=== PATIENT | male | born 1940 | race African-American/Black ===

== ENCOUNTER 2017-11-15 23:09 | Observation (INO) ==
[2017-11-16 00:15] LABS: Basophils % 0.2 % (0.0-0.8); Hematocrit 37.7 VOL% (42.0-52.0); Hemoglobin 12.3 GM/DL (14.0-18.0); Immature Granulocytes % 0.2 %; Immature Granulocytes Absolute 0.01 #; Lymphocytes # 0.4 10*3/uL (1.4-4.0); Lymphocytes % 7.5 % (21.2-54.2); Mean Corpuscular HGB Conc 32.6 GM/DL (32-36); Mean Corpuscular Hemoglobin 31 PG (27-34); Mean Corpuscular Volume 93.5 FL (87-102); Monocytes # 0.3 10*3/uL (0.11-0.8); Monocytes % 5.4 % (1.7-12.7); Neutrophils % 86.7 % (38.7-73.9); Platelet Count 176 T/CUMM (130-400); Red Blood Count 4.03 MC/CUMM (3.8-5.5); Red Cell Distribution Width 13.1 % (9.3-17.3); White Blood Count 4.7 T/CUMM (4-12)
[2017-11-16 00:32] LABS: Alanine Aminotransferase 23 U/L (16-61); Albumin 3.4 G/DL (3.4-5.0); Alkaline Phosphatase 70 U/L (45-117); Aspartate Amino Transferase 25 U/L (0-37); Blood Urea Nitrogen 15 MG/DL (7-18); Calcium 9.4 MG/DL (8.5-10.1); Glucose 142 MG/DL (74-106); Osmolality,Calculated 279.5 MOS/KG (273-304); Potassium 4.2 MMOL/L (3.5-5.1); Sodium 139 MMOL/L (136-145); Total Protein 8.2 G/DL (6.4-8.3); Troponin I Only < 0.015 NG/ML (0.00-0.045)
[2017-11-16 01:34] LABS: Apearance,Urine CLEAR (Clear); Bilirubin,Urine Negative (Negative); Blood, Urine Negative (Negative); Glucose,Urine (UA) Negative (Negative); Ketones,Urine Negative (Negative); Nitrite,Urine Negative (Negative); Protein,Urine Negative; RBC,Urine 2 /HPF (0-4); Squamous Epithelial Cell,Urine Occasional /HPF (0-10); Urine Color Yellow (Yellow); Urine Urobilinogen < 2.0 EU/DL (0.2-1.0); WBC,Urine 1 /HPF (0-6)
[2017-11-16 03:39] LABS: Thyroid Stimulating Hormone 1.51 uIU/ml (0.358-3.74)
[2017-11-16 06:13] LABS: Hematocrit 37.9 VOL% (42.0-52.0); Hemoglobin 12.7 GM/DL (14.0-18.0); Immature Granulocytes % 0.3 %; Immature Granulocytes Absolute 0.01 #; Lymphocytes # 0.2 10*3/uL (1.4-4.0); Lymphocytes % 5.3 % (21.2-54.2); Mean Corpuscular HGB Conc 33.5 GM/DL (32-36); Mean Corpuscular Hemoglobin 31 PG (27-34); Mean Corpuscular Volume 91.1 FL (87-102); Mean Platelet Volume 9.5 FL (9.6-12.0); Monocytes # 0.2 10*3/uL (0.11-0.8); Monocytes % 4.5 % (1.7-12.7); Neutrophils # 3.6 10*3/uL (1.4-7.4); Neutrophils % 89.9 % (38.7-73.9); Platelet Count 188 T/CUMM (130-400); Red Blood Count 4.16 MC/CUMM (3.8-5.5); Red Cell Distribution Width 13.2 % (9.3-17.3)
[2017-11-16 06:24] LABS: Calcium 9.2 MG/DL (8.5-10.1); Osmolality,Calculated 283.3 MOS/KG (273-304); Potassium 4.1 MMOL/L (3.5-5.1)
[2017-11-17 04:31] LABS: Basophils % 0.1 % (0.0-0.8); Hematocrit 39.8 VOL% (42.0-52.0); Hemoglobin 13.4 GM/DL (14.0-18.0); Immature Granulocytes % 0.3 %; Immature Granulocytes Absolute 0.02 #; Lymphocytes # 0.3 10*3/uL (1.4-4.0); Lymphocytes % 4.2 % (21.2-54.2); Mean Corpuscular HGB Conc 33.7 GM/DL (32-36); Mean Corpuscular Hemoglobin 31 PG (27-34); Mean Corpuscular Volume 91.5 FL (87-102); Mean Platelet Volume 10.1 FL (9.6-12.0); Monocytes # 0.5 10*3/uL (0.11-0.8); Monocytes % 6.5 % (1.7-12.7); Neutrophils # 6.6 10*3/uL (1.4-7.4); Neutrophils % 88.9 % (38.7-73.9); Platelet Count 192 T/CUMM (130-400); Red Blood Count 4.35 MC/CUMM (3.8-5.5); Red Cell Distribution Width 13.2 % (9.3-17.3); White Blood Count 7.4 T/CUMM (4-12)
[2017-11-17 04:51] LABS: Calcium 9.5 MG/DL (8.5-10.1); Osmolality,Calculated 276.7 MOS/KG (273-304); Potassium 3.8 MMOL/L (3.5-5.1)
[2017-11-17 05:53] LABS: Band Neutrophils 6 % (0-10); Lymphocytes 5 % (20-55); Segmented Neutrophils 86 % (50-85); Total Cells Counted 100
[2017-11-17 16:06] VITALS: BP 155/109
== END 2017-11-17 17:55 | disposition home or self-care (01) ==
LOC: EDUNIT# → EDBD → N.EDINP 23:09 → N.ED 23:09 → N.3E 11-16 03:17
PROVIDERS: ADMIT Internal Medicine; ATTEND Internal Medicine

== ENCOUNTER 2019-03-06 16:57 | Inpatient (IN) ==
[2019-03-06] MEDS ORDERED: diphenhydrAMINE CAP 25 MG CAPSULE PO PRN (20:29)
[2019-03-06] MEDS ORDERED: traZODone 50 MG TABLET PO PRN (20:29)
[2019-03-06] MEDS ORDERED: BISACODYL 5 MG TABLET PO PRN (20:29)
[2019-03-06] MEDS ORDERED: NICOTINE 21 MG/24 HR PATCH TRANSDERM PRN (20:29)
[2019-03-06] MEDS ORDERED: guaiFENesin/DM ER 600-30 MG TABLET PO PRN (20:29)
[2019-03-06] MEDS ORDERED: ALBUTEROL 2.5 MG/3 ML NEB RESP TX PRN (20:29)
[2019-03-06] MEDS ORDERED: VANCOMYCIN INJ 1,000 MG in SODIUM CHLORIDE 0.9% 250 ML IV PRN (20:30)
[2019-03-06 20:51] LABS: ABG Base Excess -3.7 MMOL/L (-2.5-2.5); ABG HCO3 21.4 MMOL/L (20-26); ABG Oxygen Saturation 98.3 % (95-100); ABG PCO2 31.8 MM HG (35-48); ABG PH 7.408 (7.35-7.45); ABG TCO2 17.6 MMOL/L (23-27); Allen Test Positive
[2019-03-06] MEDS ORDERED: VANCOMYCIN INJ 1,000 MG in SODIUM CHLORIDE 0.9% 250 ML IV ONE (22:00)
[2019-03-06] MEDS: MEROPENEM 500 MG in SODIUM CHLORIDE 0.9% 100 ML IV SCH (22:07)
[2019-03-06] MEDS: ENOXAPARIN 60 MG/0.6 ML SYRINGE SUBCUT SCH (22:07)
[2019-03-06 22:50] LABS: Apearance,Urine Slightly Hazy (Clear); Bilirubin,Urine Negative (Negative); Blood, Urine Large mg/dL (Negative); Glucose,Urine (UA) Negative (Negative); Granular Casts,Urine 1 /LPF (0-1); Hyaline Casts,Urine 17 /LPF (0-3); Ketones,Urine Negative (Negative); Mucus,Urine Occasional /LPF (Occasional); Nitrite,Urine Negative (Negative); Protein,Urine 30 MG/DL; RBC,Urine 1 /HPF (0-4); Urine Color Amber (Yellow); Urine Specific Gravity 1.014 (1.001-1.035); WBC,Urine 8 /HPF (0-6)
[2019-03-07 00:19] LABS: Albumin 2.5 G/DL (3.4-5.0); Bilirubin,Total 1.8 MG/DL (0.2-1.0); Calcium 8.8 MG/DL (8.5-10.1); Risk Ratio 6.62; Thyroid Stimulating Hormone 1.65 uIU/ml (0.358-3.74); Total Protein 7.9 G/DL (6.4-8.3); VLDL CHOLESTEROL 34.2 MG/DL
[2019-03-07] MEDS: ALBUTEROL/IPRATROPIUM 3 ML NEB RESP TX SCH ×5 (01:12→23:55)
[2019-03-07 05:42] LABS: Basophils % 0.2 % (0.0-0.8); Eosinophils % 0.2 % (0.00-10.9); Hematocrit 32.8 VOL% (42.0-52.0); Hemoglobin 10.1 GM/DL (14.0-18.0); Immature Granulocytes % 1.5 %; Immature Granulocytes Absolute 0.27 #; Lymphocytes # 0.3 10*3/uL (1.4-4.0); Lymphocytes % 1.9 % (21.2-54.2); Mean Corpuscular HGB Conc 30.8 GM/DL (32-36); Mean Corpuscular Volume 97.9 FL (87-102); Mean Platelet Volume 10.9 FL (9.6-12.0); Monocytes % 2.9 % (1.7-12.7); Neutrophils % 93.3 % (38.7-73.9); Platelet Count 170 T/CUMM (130-400); Red Blood Count 3.35 MC/CUMM (3.8-5.5); Red Cell Distribution Width 14.3 % (9.3-17.3); White Blood Count 18.2 T/CUMM (4-12)
[2019-03-07 06:14] LABS: Band Neutrophils 3 % (0-10); Lymphocytes 2 % (20-55); Segmented Neutrophils 93 % (50-85); Total Cells Counted 100
[2019-03-07] MEDS: MORPHINE 4 MG/1 ML VIAL IV PRN ×2 (06:15→22:22)
[2019-03-07 06:16] LABS: Platelet Estimate Normal; Tear Drop Cells Few
[2019-03-07 06:17] LABS: Ovalocytes 1+
[2019-03-07] MEDS: MEROPENEM 500 MG in SODIUM CHLORIDE 0.9% 100 ML IV SCH ×2 (08:59→22:24)
[2019-03-07] MEDS ORDERED: DEXTROSE 5% NACL 0.9% 1,000 ML IV SCH (10:30)
[2019-03-07] MEDS ORDERED: DEXTROSE 5% NACL 0.22% 1,000 ML IV SCH (18:30)
[2019-03-07] MEDS: ENOXAPARIN 60 MG/0.6 ML SYRINGE SUBCUT SCH (22:29)
[2019-03-08] MEDS: DEXTROSE 5% 1,000 ML IV SCH ×4 (02:08→21:33)
[2019-03-08 04:59] LABS: Basophils % 0.2 % (0.0-0.8); Eosinophils % 0.2 % (0.00-10.9); Hematocrit 28.6 VOL% (42.0-52.0); Hemoglobin 8.9 GM/DL (14.0-18.0); Immature Granulocytes % 0.6 %; Immature Granulocytes Absolute 0.11 #; Lymphocytes # 0.4 10*3/uL (1.4-4.0); Lymphocytes % 2.1 % (21.2-54.2); Mean Corpuscular HGB Conc 31.1 GM/DL (32-36); Mean Corpuscular Volume 96.6 FL (87-102); Mean Platelet Volume 11.2 FL (9.6-12.0); Monocytes % 3.1 % (1.7-12.7); Neutrophils % 93.8 % (38.7-73.9); Platelet Count 183 T/CUMM (130-400); Red Blood Count 2.96 MC/CUMM (3.8-5.5); Red Cell Distribution Width 14.6 % (9.3-17.3); White Blood Count 17.4 T/CUMM (4-12)
[2019-03-08 05:25] LABS: Calcium 8.5 MG/DL (8.5-10.1); Osmolality,Calculated 338.7 MOS/KG (273-304)
[2019-03-08 06:04] LABS: Band Neutrophils 1 % (0-10); Lymphocytes 2 % (20-55); Segmented Neutrophils 95 % (50-85); Total Cells Counted 100
[2019-03-08 06:05] LABS: Platelet Estimate Adequate; Polychromasia Few
[2019-03-08] MEDS: ALBUTEROL/IPRATROPIUM 3 ML NEB RESP TX SCH ×3 (07:05→19:35)
[2019-03-08] MEDS: MEROPENEM 500 MG in SODIUM CHLORIDE 0.9% 100 ML IV SCH ×2 (10:12→21:32)
[2019-03-08] MEDS: MORPHINE 4 MG/1 ML VIAL IV PRN (13:09)
[2019-03-08] MEDS: ACETAMINOPHEN 325 MG SUPP RECTAL PRN (18:23)
[2019-03-08] MEDS: HEPARIN 5,000 UNIT/1 ML VIAL SUBCUT SCH (21:35)
[2019-03-09] MEDS: ALBUTEROL/IPRATROPIUM 3 ML NEB RESP TX SCH ×4 (01:44→20:26)
[2019-03-09] MEDS: HEPARIN 5,000 UNIT/1 ML VIAL SUBCUT SCH (06:19)
[2019-03-09 06:26] LABS: Calcium 8.7 MG/DL (8.5-10.1); Osmolality,Calculated 333.7 MOS/KG (273-304)
[2019-03-09] MEDS: DEXTROSE 5% 1,000 ML IV SCH ×3 (11:21→18:46)
[2019-03-09] MEDS ORDERED: ACETAMINOPHEN 325 MG SUPP RECTAL ONE (11:58)
[2019-03-09] MEDS: ACETAMINOPHEN 325 MG SUPP RECTAL PRN (12:10)
[2019-03-09] MEDS ORDERED: DEXTROSE 50% 25 GM/50 ML VIAL IV PRN (12:26)
[2019-03-09] MEDS ORDERED: GLUCAGON 1 MG VIAL IM PRN (12:26)
[2019-03-09] MEDS: HEPARIN DRIP 25,000 UNITS/500 ML PREMIX IV SCH (13:30)
[2019-03-09 13:44] LABS: INR 1.1; PT Patient Result 11.6 SECS (9.6-12.2)
[2019-03-09] MEDS: MORPHINE 4 MG/1 ML VIAL IV PRN ×2 (13:51→22:17)
[2019-03-09] MEDS: MEROPENEM 500 MG in SODIUM CHLORIDE 0.9% 100 ML IV SCH ×2 (13:59→21:22)
[2019-03-09] MEDS: INSULIN LISPRO 100 UNIT/ML SUBCUT SCH (18:44)
[2019-03-10] MEDS: ALBUTEROL/IPRATROPIUM 3 ML NEB RESP TX SCH ×4 (00:14→19:20)
[2019-03-10] MEDS: INSULIN LISPRO 100 UNIT/ML SUBCUT SCH ×4 (02:07→18:55)
[2019-03-10 05:40] LABS: Basophils % 0.2 % (0.0-0.8); Eosinophils # 0.2 10*3/uL (0.0-0.87); Eosinophils % 1.2 % (0.00-10.9); Hematocrit 33.9 VOL% (42.0-52.0); Immature Granulocytes % 2.1 %; Immature Granulocytes Absolute 0.25 #; Lymphocytes # 0.5 10*3/uL (1.4-4.0); Lymphocytes % 4.1 % (21.2-54.2); Mean Corpuscular HGB Conc 29.5 GM/DL (32-36); Mean Corpuscular Volume 101.2 FL (87-102); Mean Platelet Volume 10.8 FL (9.6-12.0); Monocytes % 3.7 % (1.7-12.7); Neutrophils % 88.7 % (38.7-73.9); Platelet Count 204 T/CUMM (130-400); Red Blood Count 3.35 MC/CUMM (3.8-5.5); White Blood Count 12.2 T/CUMM (4-12)
[2019-03-10 06:02] LABS: Bilirubin,Direct 3.63 MG/DL (0.0-0.20); Bilirubin,Total 4.6 MG/DL (0.2-1.0); Total Protein 7.6 G/DL (6.4-8.3)
[2019-03-10 06:14] LABS: Band Neutrophils 1 % (0-10); Eosinophils 1 % (0-10); Lymphocytes 2 % (20-55); Platelet Estimate Adequate; Polychromasia Few; Segmented Neutrophils 96 % (50-85); Total Cells Counted 100
[2019-03-10 06:16] LABS: Calcium 8.9 MG/DL (8.5-10.1); Osmolality,Calculated 338.6 MOS/KG (273-304)
[2019-03-10] MEDS: DEXTROSE 5% 1,000 ML IV SCH ×4 (06:47→21:20)
[2019-03-10 09:04] LABS: INR 1.1
[2019-03-10 09:12] LABS: Partial Thromboplastin Time 88.6 SECS (20.8-36.0)
[2019-03-10] MEDS: MEROPENEM 500 MG in SODIUM CHLORIDE 0.9% 100 ML IV SCH ×2 (11:33→21:22)
[2019-03-10] MEDS: MORPHINE 4 MG/1 ML VIAL IV PRN (11:49)
[2019-03-10] MEDS: HEPARIN DRIP 25,000 UNITS/500 ML PREMIX IV SCH (12:12)
[2019-03-10] MEDS: CHLORHEXIDINE 0.12% ORAL RINSE 60 ML BOTTLE SWISH/SPIT SCH (21:27)
[2019-03-11] MEDS: ALBUTEROL/IPRATROPIUM 3 ML NEB RESP TX SCH ×4 (00:32→19:09)
[2019-03-11] MEDS: INSULIN LISPRO 100 UNIT/ML SUBCUT SCH ×4 (00:40→19:12)
[2019-03-11 01:08] LABS: Basophils % 0.4 % (0.0-0.8); Eosinophils # 0.3 10*3/uL (0.0-0.87); Eosinophils % 3.4 % (0.00-10.9); Hematocrit 25.5 VOL% (42.0-52.0); Immature Granulocytes % 2.4 %; Immature Granulocytes Absolute 0.24 #; Lymphocytes # 0.6 10*3/uL (1.4-4.0); Lymphocytes % 5.5 % (21.2-54.2); Mean Corpuscular HGB Conc 31.4 GM/DL (32-36); Mean Corpuscular Volume 95.5 FL (87-102); Mean Platelet Volume 10.4 FL (9.6-12.0); Monocytes % 4.5 % (1.7-12.7); Neutrophils % 83.8 % (38.7-73.9); Platelet Count 173 T/CUMM (130-400); Red Blood Count 2.67 MC/CUMM (3.8-5.5); Red Cell Distribution Width 14.9 % (9.3-17.3)
[2019-03-11 01:25] LABS: Calcium 8.2 MG/DL (8.5-10.1); Osmolality,Calculated 318.9 MOS/KG (273-304)
[2019-03-11] MEDS: DEXTROSE 5% 1,000 ML IV SCH ×3 (02:30→13:28)
[2019-03-11 02:58] LABS: Band Neutrophils 12 % (0-10); Eosinophils 1 % (0-10); Lymphocytes 5 % (20-55); Platelet Estimate Normal; Segmented Neutrophils 78 % (50-85); Total Cells Counted 100
[2019-03-11 02:59] LABS: Hypochromasia Slight; Ovalocytes Few
[2019-03-11 08:06] LABS: ABG Base Excess -2.6 MMOL/L (-2.5-2.5); ABG HCO3 19.4 MMOL/L (20-26); ABG Oxygen Saturation 96.5 % (95-100); ABG PCO2 24.5 MM HG (35-48); ABG PH 7.517 (7.35-7.45); ABG PO2 82.8 MM HG (80-95); ABG TCO2 20.2 MMOL/L (23-27); Allen Test Positive
[2019-03-11] MEDS: HEPARIN DRIP 25,000 UNITS/500 ML PREMIX IV SCH ×2 (08:08→13:29)
[2019-03-11 08:40] LABS: Calcium 8.1 MG/DL (8.5-10.1); Osmolality,Calculated 305.6 MOS/KG (273-304)
[2019-03-11] MEDS: MEROPENEM 500 MG in SODIUM CHLORIDE 0.9% 100 ML IV SCH (09:46)
[2019-03-11] MEDS: CHLORHEXIDINE 0.12% ORAL RINSE 60 ML BOTTLE SWISH/SPIT SCH ×2 (09:51→21:15)
[2019-03-11] MEDS: ONDANSETRON 4 MG/2 ML VIAL IV PRN (11:48)
[2019-03-11] MEDS: MORPHINE 4 MG/1 ML VIAL IV PRN (13:26)
[2019-03-11] MEDS: PIPERACILLIN/TAZOBACTAM 3,375 MG in SODIUM CHLORIDE 0.9% 100 ML IV SCH (17:02)
[2019-03-11] MEDS: ACETAMINOPHEN 325 MG TABLET PO PRN (19:00)
[2019-03-11] MEDS ORDERED: ENOXAPARIN 60 MG/0.6 ML SYRINGE SUBCUT SCH (21:00)
[2019-03-12] MEDS: INSULIN LISPRO 100 UNIT/ML SUBCUT SCH ×4 (00:52→17:37)
[2019-03-12] MEDS: DEXTROSE 5% 1,000 ML IV SCH ×4 (01:00→16:55)
[2019-03-12] MEDS: ALBUTEROL/IPRATROPIUM 3 ML NEB RESP TX SCH ×4 (01:19→20:13)
[2019-03-12] MEDS: ONDANSETRON 4 MG/2 ML VIAL IV PRN ×2 (01:40→05:28)
[2019-03-12] MEDS: PIPERACILLIN/TAZOBACTAM 3,375 MG in SODIUM CHLORIDE 0.9% 100 ML IV SCH ×2 (04:00→16:55)
[2019-03-12] MEDS ORDERED: PROMETHAZINE 25 MG/1 ML VIAL IM PRN (06:21)
[2019-03-12 06:55] LABS: Prealbumin 7.9 MG/DL (20-40)
[2019-03-12] MEDS: CHLORHEXIDINE 0.12% ORAL RINSE 60 ML BOTTLE SWISH/SPIT SCH ×2 (08:38→21:58)
[2019-03-12] MEDS: POLYETHYLENE GLYCOL POWDER 17 GM PACK PO SCH ×2 (16:55→21:58)
[2019-03-12] MEDS: METOCLOPRAMIDE 10 MG/2 ML VIAL IV SCH (18:20)
[2019-03-12] MEDS: APIXABAN 5 MG TABLET PO SCH (21:58)
[2019-03-13] MEDS: INSULIN LISPRO 100 UNIT/ML SUBCUT SCH ×4 (00:50→17:39)
[2019-03-13] MEDS: METOCLOPRAMIDE 10 MG/2 ML VIAL IV SCH ×4 (00:50→18:27)
[2019-03-13] MEDS: ALBUTEROL/IPRATROPIUM 3 ML NEB RESP TX SCH ×2 (01:06→07:51)
[2019-03-13] MEDS: ONDANSETRON 4 MG/2 ML VIAL IV PRN ×4 (01:55→21:59)
[2019-03-13] MEDS: PIPERACILLIN/TAZOBACTAM 3,375 MG in SODIUM CHLORIDE 0.9% 100 ML IV SCH ×2 (04:34→18:26)
[2019-03-13 05:48] LABS: Basophils % 0.1 % (0.0-0.8); Eosinophils # 0.1 10*3/uL (0.0-0.87); Eosinophils % 0.5 % (0.00-10.9); Hematocrit 22.9 VOL% (42.0-52.0); Hemoglobin 7.4 GM/DL (14.0-18.0); Immature Granulocytes % 1.3 %; Immature Granulocytes Absolute 0.18 #; Lymphocytes # 0.4 10*3/uL (1.4-4.0); Lymphocytes % 3.2 % (21.2-54.2); Mean Corpuscular HGB Conc 32.3 GM/DL (32-36); Mean Corpuscular Volume 91.6 FL (87-102); Mean Platelet Volume 11.1 FL (9.6-12.0); Monocytes % 3.5 % (1.7-12.7); Neutrophils % 91.4 % (38.7-73.9); Platelet Count 186 T/CUMM (130-400); Red Cell Distribution Width 14.3 % (9.3-17.3); White Blood Count 13.5 T/CUMM (4-12)
[2019-03-13 06:02] LABS: Calcium 7.8 MG/DL (8.5-10.1)
[2019-03-13 06:18] LABS: Hypochromasia Slight; Lymphocytes 4 % (20-55); Platelet Estimate Decreased; Segmented Neutrophils 96 % (50-85); Total Cells Counted 100
[2019-03-13 06:19] LABS: Polychromasia Few
[2019-03-13] MEDS: DEXTROSE 5% 1,000 ML IV SCH ×4 (06:47→16:24)
[2019-03-13] MEDS: POLYETHYLENE GLYCOL POWDER 17 GM PACK PO SCH ×2 (10:31→22:00)
[2019-03-13] MEDS: APIXABAN 5 MG TABLET PO SCH ×2 (10:31→22:00)
[2019-03-13] MEDS: CHLORHEXIDINE 0.12% ORAL RINSE 60 ML BOTTLE SWISH/SPIT SCH ×2 (10:32→22:00)
[2019-03-13] MEDS: POTASSIUM CHLORIDE RIDER 20 MEQ in PREMIX 1 EACH IV SCH ×2 (16:23→19:05)
[2019-03-13] MEDS ORDERED: SIMVASTATIN 20 MG TABLET PO SCH (21:00)
[2019-03-14] MEDS: INSULIN LISPRO 100 UNIT/ML SUBCUT SCH ×4 (00:45→18:21)
[2019-03-14] MEDS: METOCLOPRAMIDE 10 MG/2 ML VIAL IV SCH ×4 (00:55→17:36)
[2019-03-14] MEDS: PIPERACILLIN/TAZOBACTAM 3,375 MG in SODIUM CHLORIDE 0.9% 100 ML IV SCH ×2 (04:35→16:57)
[2019-03-14] MEDS: ONDANSETRON 4 MG/2 ML VIAL IV PRN (04:58)
[2019-03-14 06:12] LABS: Basophils % 0.2 % (0.0-0.8); Eosinophils % 0.4 % (0.00-10.9); Hemoglobin 7.8 GM/DL (14.0-18.0); Immature Granulocytes % 3.4 %; Immature Granulocytes Absolute 0.29 #; Lymphocytes # 0.5 10*3/uL (1.4-4.0); Lymphocytes % 5.5 % (21.2-54.2); Mean Corpuscular HGB Conc 32.5 GM/DL (32-36); Mean Platelet Volume 10.7 FL (9.6-12.0); Monocytes % 5.2 % (1.7-12.7); Neutrophils % 85.3 % (38.7-73.9); Platelet Count 220 T/CUMM (130-400); Red Blood Count 2.61 MC/CUMM (3.8-5.5); Red Cell Distribution Width 14.4 % (9.3-17.3); White Blood Count 8.5 T/CUMM (4-12)
[2019-03-14 06:40] LABS: Calcium 7.5 MG/DL (8.5-10.1); Osmolality,Calculated 282.8 MOS/KG (273-304)
[2019-03-14 06:45] LABS: Hypochromasia 1+
[2019-03-14 06:46] LABS: Microcytosis 1+
[2019-03-14 06:47] LABS: Platelet Estimate Normal
[2019-03-14] MEDS: DEXTROSE 5% 1,000 ML IV SCH (08:31)
[2019-03-14] MEDS ORDERED: ASPIRIN EC 81 MG TABLET PO SCH (09:00)
[2019-03-14] MEDS: APIXABAN 5 MG TABLET PO SCH (09:27)
[2019-03-14] MEDS: POLYETHYLENE GLYCOL POWDER 17 GM PACK PO SCH (09:27)
[2019-03-14] MEDS: CHLORHEXIDINE 0.12% ORAL RINSE 60 ML BOTTLE SWISH/SPIT SCH (09:27)
[2019-03-14] MEDS ORDERED: DEXT 5% NACL 0.45% KCL 10 MEQ 10 MEQ/1,000 ML BAG IV SCH (09:30)
[2019-03-14] MEDS: POTASSIUM CHLORIDE RIDER 10 MEQ in PREMIX 1 EACH IV SCH ×2 (13:25→14:33)
[2019-03-14 16:01] VITALS: BP 115/57
[2019-03-14] MEDS: ACETAMINOPHEN 325 MG TABLET PO PRN (17:44)
== END 2019-03-14 19:25 | disposition hospice, home (50) | DRG 871 ==
LOC: SUATTDRO 18:52 → N.3E 18:52
PROVIDERS: ADMIT Internal Medicine; ATTEND Internal Medicine